=== PATIENT | male | born 1955 | race Caucasian/White ===

== ENCOUNTER 2019-11-10 04:56 | Inpatient (IN) ==
--- NOTE | 2019-10-25 14:50 | History & Physical Report ---
Date of Service October 25, 2019 Assessment & Plan (1) Osteoarthritis of right knee: DIAGNOSIS: Right knee osteoarthritis. PROCEDURE: Right total knee arthroplasty. PLAN: The patient is scheduled to undergo this procedure with Dr. Julius Sparrow at [facility] as an inpatient on November 10, 2019. Risks and complications of the procedure such as infection, bleeding, pain, scarring, nerve and blood vessel damage, weakness, wound problems, stiffness, incomplete relief of his symptoms, hardware failure, hardware loosening, or a fracture, tendon or ligament injury, blood clots, embolism, heart attack, stroke, and were explained to the patient by Dr. Sparrow during his visit today. Informed consent to perform the procedure was obtained. Sent a new copy for PCP parents to the patient's primary care provider Min Reina PA-C. We will need to obtain updated CBC with diff, complete metabolic panel, PT/INR, blood type and screen, urinalysis, urine culture, hemoglobin A1c, and a nasal culture for MRSA. The patient has up-to-date EKG and chest x-ray imaging from his last preoperative visit. The patient will be scheduled for his 2-week postoperative followup visit with myself on December 24 at 1:30 in the afternoon. He states he will most likely do an in-home therapy after discharge from the hospital for 1 week then transition to outpatient physical therapy. I advised him that he will need to hold aspirin for 7 days prior to the procedure and his metformin for 2 days prior to the procedure and to refrain from taking nonsteroidal agents for a week prior to the surgery date. He can take his blood pressure medications with a sip of water on the morning of surgery as well as his thyroid medication. I advised him that I will provide him with prescriptions for postop pain medication as well as anti-inflammatory medication upon discharge from the hospital. I advised him that he will be on a baby aspirin twice daily for 30 days postoperatively for blood clots and discussed supplementation with extra-strength Tylenol every 6 to 8 hours 2 tablets after surgery as well. We went over the total knee arthroplasty packet. We discussed discharge planning. I provided him with paperwork about using antibiotics before dental procedures or cleanings. We talked about lectures offered by [facility] with regard to joint replacement therapy. I also provided him with the paperwork to obtain a handicap placard for his vehicle for 6 months postoperatively his last preoperative visit and he has sent it to [place] for approval. I also checked with PDMP today to be sure that we could prescribe opioid analgesics and no red flags were raised that would prevent us from prescribing these medications. I also provided the patient with order for a walker and advised him that we will provide the knee immobilizer to use 48 hours postoperatively. The patient verbalized understanding of all information provided during today's visit, thanked us for the care he has received, and states if he has questions or concerns that should arise prior to his procedure date, he will contact the clinic accordingly. History of Present Illness Chief Complaint: Right knee Pain Primary Care Provider: Min Bernal PA-C HISTORY OF PRESENT ILLNESS: This 63-year-old male presented to clinic today for his preoperative history and physical. Patient was initially scheduled for a right total knee arthroplasty on September 07 however his surgery was canceled due to the COVID-19 pandemic. The patient complains of knee pain since injuring his knee at work on April 28, 2019. The patient states that he was stepping down from approximately 1 to 2 feet, had a twisting sensation of his knee when he hit the ground and has had medial-sided knee pain since. The patient saw a physician the day after the injury, had a cortisone injection without any relief. He has tried rest, has used crutches as an ambulatory aid without relief. He has tried some therapy as well, as well as some pain relieving agents that only temporarily alleviates pain. We discussed nonsurgical treatment with the patient; however, he feels this is preventing him from working and is starting to affect his activities of daily living. He elected to proceed with surgical intervention due to his significant osteoarthritis. Knee arthroscopy is not a good option for this patient, so we will proceed with total knee arthroplasty. PAST MEDICAL HISTORY: Type 2 diabetes, gastroesophageal reflux, hypothyroidism, hypercholesterolemia, and hypertension. Also, psoriasis, obesity, history of renal calculi, and the presence of dentures in his mouth. PAST SURGICAL HISTORY: Cholecystectomy, dental extraction, colonoscopy, esop hagogastroduodenoscopy, tonsillectomy/adenoidectomy. FAMILY HISTORY: Unremarkable. ALLERGIES: The patient has no known drug allergies. CURRENT MEDICATIONS: Amlodipine 5 mg tablet daily, aspirin 81 mg tablet daily, atorvastatin 10 mg oral tablet daily, levothyroxine 137 mcg tablet daily, metformin 500 mg tablet daily, pantoprazole 40 mg tablet daily, and Tylenol 1000 mg by mouth 2 to 3 times daily as needed for pain. SOCIAL HISTORY: Patient states that he quit smoking 18 years ago. He consumes approximately 8 alcoholic beverages per week. Denies any illicit drug use. DIAGNOSTIC STUDIES: DIAGNOSIS: Right knee osteoarthritis. PROCEDURE: Right total knee arthroplasty. PLAN: The patient is scheduled to undergo this procedure with Dr. Julius Sparrow at [facility] as an inpatient on November 10, 2019. Risks and complications of the procedure such as infection, bleeding, pain, scarring, nerve and blood vessel damage, weakness, wound problems, stiffness, in complete relief of his symptoms, hardware failure, hardware loosening, or a fracture, tendon or ligament injury, blood clots, embolism, heart attack, stroke, and were explained to the patient by Dr. Sparrow during his visit today. Informed consent to perform the procedure was obtained. Sent a new copy for PCP parents to the patient's primary care provider Min Reina PA-C. We will need to obtain updated CBC with diff, complete metabolic panel, PT/INR, blood type and screen, urinalysis, urine culture, hemoglobin A1c, and a nasal culture for MRSA. The patient has up-to-date EKG and chest x-ray imaging from his last preoperative visit. The patient will be scheduled for his 2-week postoperative followup visit with myself on December 24 at 1:30 in the afternoon. He states he will most likely do an in-home therapy after discharge from the hospital for 1 week then transition to outpatient physical therapy. I advised him that he will need to hold aspirin for 7 days prior to the procedure and his metformin for 2 days prior to the procedure and to refrain from taking nonsteroidal agents for a week prior to the surgery date. He can take his blood pressure medications with a sip of water on the morning of surgery as well as his thyroid medication. I advised him that I will provide him with prescriptions for postop pain medication as well as anti-inflammatory medication upon discharge from the hospital. I advised him that he will be on a baby aspirin twice daily for 30 days postoperatively for blood clots and discussed supplementation with extra-strength Tylenol every 6 to 8 hours 2 tablets after surgery as well. We went over the total knee arthroplasty packet. We discussed discharge planning. I provided him with paperwork about using antibiotics before dental procedures or cleanings. We talked about lectures offered by [facility] with regard to joint replacement therapy. I also provided him with the paperwork to obtain a handicap placard for his vehicle for 6 months postoperatively his last preoperative visit and he has sent it to [place] for approval. I also checked with PDMP today to be sure that we could prescribe opioid analgesics and no red flags were raised that would prevent us from prescribing these medications. I also provided the patient with order for a walker and advised him that we will provide the knee immobilizer to use 48 hours postoperatively. The patient verbalized understanding of all information provided during today's visit, thanked us for the care he has received, and states if he has questions or concerns that should arise prior to his procedure date, he will contact the clinic accordingly. Allergies Allergy/AdvReac Type Severity Reaction Status Date / Time celecoxib [From Celebrex] AdvReac Unknown UPPER GIB Verified 08/12/19 14:33 BANDAIDS AdvReac Unknown SKIN Uncoded 08/12/19 14:33 TEARING (SEE COMMENTS) Home Medications Home Medications Medication Instructions Recorded Confirmed Type amlodipine 5 mg PO QAM 08/05/19 08/05/19 History aspirin [Aspir-81] 81 mg PO DAILY 08/05/19 08/05/19 History levothyroxine 137 mcg PO QAM 08/05/19 08/05/19 History metformin 500 mg PO QAM 08/05/19 08/05/19 History pantoprazole 40 mg PO QAM 08/05/19 08/05/19 History Past Med/Surg History Social History Preferred Language: Nepali Communication Ability: Effective Printer'S Devil Required: No Beliefs That Will Affect Care: None Current Living Situation: Spouse Feels Safe at Home: Yes Smoking Status: Former smoker Hx Substance Use: No Review of Systems All systems reviewed & are unremarkable except as noted in HPI & below Physical Exam Physical Exam: PHYSICAL EXAMINATION: Skin: The patient's skin is normal in appearance except for a significant amount of psoriasis affecting the flexor surfaces of his knees, elbows, his lower back, and chest area. The patient has been using topical cream on the area over his anterior right knee, and it appears clear than the other patches. He is doing this so that he can proceed with surgical intervention. Eyes: Pupils are equal and reactive to light and accommodating. Extraocular movements are intact. Throat: Posterior oropharynx clear with absence of edema, erythema, exudate. Cardiovascular Exam: The patient has a regular rate and rhythm with no murmurs or gallops appreciated. Lungs: Auscultation of lung ivory reveals clear breath sounds throughout with no wheezing, rales, or rhonchi. Abdomen: Obese, nondistended, nontender with normoactive bowel sounds. Extremities: Right Knee: The patient has tenderness to palpation over the medial joint space as well as over the medial femoral condyle, and medial tibial plateau. Range of motion is limited from 0 degrees of extension to 85 degrees of flexion. Natacha's test is positive with referable pain to the medial lateral aspect of the knee. The patient also has lateral joint line tenderness when knee is palpated in the flexed position, but is lesser than that of the medial aspect. Otherwise, the patient has no varus or valgus laxity. Negative AP drawer sign. Negative Per test. Neurological Exam: Cranial nerves II through XII are intact. No motor or sensory deficits. Psychological/General Exam: The patient is alert and oriented x3 with proper grooming and hygiene. Results & Data Diagnostic Findings MRI Results: MRI of the patient's right knee done on June 14, 2019, shows tears of both the medial and lateral meniscus along with a large area of chondral loss of the medial femoral condyle, and medial tibial plateau with underlying bone marrow edema on both sides of the joint. X-rays show pathologic varus alignment with weightbearing. There is significant medial joint space narrowing and chondral calcinosis in the medial and lateral menisci.
--- NOTE | 2019-11-08 11:46 | Communication Note ---
Date of Service: November 08, 2019 COVID Assessment: Pt travel/history reviewed. Low risk at this time. Will reassess day of surgery. Routine preop covid screening from 11/07/2019 still pendi ng. Will need to confirm results by DOS.
--- NOTE | 2019-11-08 13:36 | Anesthesiology Consultation ---
Date of Service November 08, 2019 Assessment & Plan (1) Encounter for pre-operative examination: Chart Review Chart Review: Acceptable Risk for Surgery and Patient NOT seen in Pre Admission Testing Consults Requested none History Surgery Operation Date: 11/10/19 07:15 Proposed Procedures p Right Total Knee Arthroplasty - Julius Sparrow MD Height/Weight Height: 5 ft 6 in Weight: 111.13 kg Allergies Allergy/AdvReac Type Severity Reaction Status Date / Time celecoxib [From Celebrex] AdvReac Unknown UPPER GI Verified 11/03/19 09:15 BLEED BANDAIDS AdvReac Unknown SKIN Uncoded 11/03/19 09:15 TEARING (SEE COMMENTS) Medications Home Medications Medication Instructions Recorded Confirmed Last Taken amlodipine 5 mg PO QAM 08/05/19 11/03/19 Unknown aspirin [Aspir-81] 81 mg PO DAILY 08/05/19 11/03/19 Unknown metformin 500 mg PO QAM 08/05/19 11/03/19 Unknown pantoprazole 40 mg PO QAM 08/05/19 11/03/19 Unknown atorvastatin 10 mg PO HS 11/03/19 11/03/19 Unknown levothyroxine 137 mcg PO QAM 11/03/19 11/03/19 Unknown Past Medical History Medical History Acid reflux controlled Colon polyp Diabetes NIDDM History of kidney stones x1 History of upper gastrointestinal bleeding NSAID related- years ago/on PPI Hypertension Hypothyroidism Obesity Osteoarthritis Psoriasis Past Family History Family History Father Family hx of colon cancer Grandmother Family hx of colon cancer Other No family history of adverse response to anesthesia Past Surgical History Surgical History History of cholecystectomy History of colonoscopy History of endoscopy History of tonsillectomy Social History Smoking Status: Former smoker tobacco type: cigarettes Do You Dip or Chew Tobacco: No Smoking End Date: 2000 Hx Alcohol Use: Yes Alcohol type: wine and hard liquor alcohol intake frequency: a few times a week Hx Substance Use: No substance use type: does not use Testing Laboratory Results 10/27/2019: PT 12.9, INR 1 Na 137, K 3.9. Cl 105, bicarg 26, BUN 16, creat 0.89, glu 101 Hgb 14.4, hct 45.4, plt 267 Electrocardiogram Date: 08/12/19 Findings: + NSR @ (63) Normal sinus rhythm Normal ECG No previous ECGs available Confirmed by Arvind Del Toro ([id number]) on 08/12/2019 4:05:35 PM Chest X-Ray Date: 08/09/19 XR chest Pre-admission PA/Lat HISTORY: 63 years-old Male PAT preoperative exam. No acute chest complaints COMPARISON: None TECHNIQUE: PA and lateral views of the chest FINDINGS: Cardiomediastinal and hilar silhouettes are within normal limits. There is no pneumothorax, pleural effusion, focal airspace consolidation or overt pulmonary edema. Hyperinflation with diaphragmatic flattening. Cholecystectomy clips are noted within the upper abdomen. Bones appear grossly intact. IMPRESSION: Hyperinflation without acute process.
[~2019-11-10 04:56] MED LIST: CELEBREX - ALLERGY NOTED TO ORDERED MEDICATION SCH; [UNRECOGNIZED DRUG - OTHER] SCH
[2019-11-10] MEDS ORDERED: TRANEXAMIC ACID 1,000 MG **IV Pre-op IV SCH (06:00)
[2019-11-10] MEDS ORDERED: TRAMADOL HCL 50 MG TABLET PO SCH (06:00)
[2019-11-10] MEDS ORDERED: FAMOTIDINE 20 MG TAB PO SCH (06:00)
[2019-11-10] MEDS ORDERED: METOCLOPRAMIDE HCL 10 MG TABLET PO SCH (06:00)
[2019-11-10] MEDS ORDERED: ACETAMINOPHEN 500 MG TAB PO SCH (06:00)
[2019-11-10] MEDS ORDERED: ROPIVACAINE 0.5% HCL/PF 150 MG, BUPIVACAINE 0.5% MPF 30 ML, EPINEPHrine 0.15 MG, Ketoro... INFIL SCH (06:00)
[2019-11-10] MEDS ORDERED: LR 500ML BOLUS, THEN 15ML/HR IV SCH (06:00)
[2019-11-10] MEDS ORDERED: CeleBREX 200 MG CAP PO SCH (06:00)
[2019-11-10] MEDS ORDERED: LR 60ML/HR IV SCH (06:00)
[2019-11-10] MEDS ORDERED: SCOPOLAMINE 1.5 MG TDSY TD SCH (06:00)
[2019-11-10] MEDS ORDERED: TRANEXAMIC ACID 1,000 MG **IV Intra-op IV SCH (06:00)
[2019-11-10] MEDS ORDERED: CEFAZOLIN 3000MG 72.5 ML IV SCH (06:00)
[2019-11-10] MEDS ORDERED: BUPIVACAINE 0.5 % 5 MG/1 ML PF 10ML VIAL ONE (06:26)
[2019-11-10] MEDS ORDERED: ROPIVACAINE 0.5% 5 MG/ML 30 ML VIAL ONE (06:26)
[2019-11-10] MEDS ORDERED: PROPOFOL IV EMULSION 10 MG/ML 20 ML VIAL IV ONE ×2 (06:50→09:00)
[2019-11-10] MEDS ORDERED: MIDAZOLAM HCL 1 MG/ML 2ML VIAL ONE ×3 (06:50→08:21)
[2019-11-10] MEDS ORDERED: LIDOCAINE HCL 2% 2 ML VIAL/AMP(20MG/ML) INFIL ONE (06:50)
[2019-11-10] MEDS ORDERED: fentaNYL citrate 100 MCG/2 ML VIAL ONE (06:50)
--- NOTE | 2019-11-10 06:55 | History & Physical Bridge Note ---
Date of Service November 10, 2019 History & Physical Bridge Note I have examined the patient, reviewed the History & Physical and in the interval since the performance of the History & Physical I have noted the following changes of clinical significance: no changes noted
[2019-11-10] MEDS ORDERED: ORTHO JOINT ANESTHETIC ONE (07:01)
[2019-11-10] MEDS ORDERED: PROMETHAZINE HCL 12.5 MG in SODIUM CHLORIDE 0.9% 50 ML IV PRN (08:01)
[2019-11-10] MEDS ORDERED: HYDROmorphone INJ 2 MG/ML SYR/VIAL IV PRN (08:01)
[2019-11-10] MEDS ORDERED: fentaNYL citrate 100 MCG/2 ML VIAL IV PRN (08:01)
[2019-11-10] MEDS ORDERED: METOCLOPRAMIDE HCL INJ 5 MG/ML 2 ML VIAL IV PRN ×2 (08:01→09:22)
[2019-11-10] MEDS ORDERED: ATROPINE SULFATE 0.1 MG/ML 10ML SYR IV PRN (08:01)
[2019-11-10] MEDS ORDERED: ePHEDrine sulfate 50 MG/ML AMP IV PRN (08:01)
[2019-11-10] MEDS ORDERED: ONDANSETRON INJ 2 MG/ML 2 ML VIAL IV PRN ×2 (08:01→09:22)
[2019-11-10] MEDS ORDERED: ePHEDrine sulfate 50 MG/ML SYR ONE (08:23)
[2019-11-10] MEDS ORDERED: DiphenhydrAMINE HCL 50 MG/ML VIAL IV PRN (09:22)
[2019-11-10] MEDS ORDERED: NALOXONE HCL 0.4 MG/1 ML VIAL/CARP IV PRN (09:22)
[2019-11-10] MEDS ORDERED: MAGNESIUM HYDROXIDE SUSP 30 ML UDC PO PRN (09:22)
[2019-11-10] MEDS ORDERED: bisacodyL 10 MG SUPP PR PRN (09:22)
[2019-11-10] MEDS ORDERED: TAMSULOSIN HCL 0.4 MG CAP PO PRN (09:22)
[2019-11-10] MEDS ORDERED: ALUMINUM/MAGNESIUM SUSP 30 ML UDC PO PRN (09:22)
--- NOTE | 2019-11-10 09:22 | Operative Report ---
Post Operative Report Pre & Post Diagnosis Operation Date: 11/10/19 07:15 Pre-Op Diagnosis: Right Knee Osteoarthritis Post-Op Diagnosis: Right Knee Osteoarthritis I identified the patient and participated in the time-out.: Yes Procedure Operation Date: 11/10/19 07:15 Actual Procedures p Right Total Knee Arthroplasty(Right) - Julius Sparrow MD Surgeon Julius Sparrow MD Resort Housekeeper Conor Rosado PALizbeth Estimated Blood Loss 100 Findings Consistent with Post-Op Diagnosis Specimens none Complications none Disposition Accompanied Patient To Recovery: Yes Disposition: Recovery Room Description of Procedure I was present during the entire case assisting with retraction, wound closure and dressing application. Please see Dr. Sparrow procedure note for specifics of the case. I attest to the content of the Intraoperative Record and any orders documented therein. Any exceptions are noted below.
--- NOTE | 2019-11-10 09:25 | Operative Report ---
Post Operative Report Pre & Post Diagnosis Operation Date: 11/10/19 07:15 Pre-Op Diagnosis: Right Knee Osteoarthritis Post-Op Diagnosis: Right Knee Osteoarthritis I identified the patient and participated in the time-out.: Yes Procedure Operation Date: 11/10/19 07:15 Actual Procedures p Right Total Knee Arthroplasty(Right) - Julius Sparrow MD Surgeon Juilus Sparrow MD Medical Review Coordinator SYMONE Rosado PA-C Estimated Blood Loss 100 Findings Consistent with Post-Op Diagnosis Specimens Bone and soft tissue content Anesthesia Type Spinal MAC Complications none Disposition Accompanied Patient To Recovery: No Disposition: Recovery Room Indications 63-year-old gentleman who injured his knee at work on April 28, 2019. A corticosteroid injection was attempted prior to him seeing me which was unsuccessful. I saw him in June 2019. X-rays at that time demonstrated medial joint space narrowing and pathologic varus alignment. MRI that was done in June showed large areas of chondral loss from the medial aspect of the knee with underlying bone marrow edema on both sides of the joint. Tears of the medial lateral meniscus were noted as well. I had a long discussion with the patient about his diagnosis. I recommended a total knee arthroplasty. After reviewing the risks and benefits of surgery, alternatives, and expected outcomes, patient elected to proceed with surgery. All questions were answered. Informed consent was signed. We did have to delay his surgery due to the coronavirus pandemic. Description of Procedure Patient was identified in the preoperative holding area where the surgical site was marked. Patient was brought back to the operating room, placed on the operating room table, and IV sedation was administered. All bony prominences were padded. Perioperative antibiotics and tranexamic acid were administered. Exam under anesthesia was performed. This demonstrated range of motion from 3 degrees up to 125 degrees. The surgical site was prepped and draped in the normal sterile fashion. Prior to incision a multidisciplinary timeout was called. All in the room were in agreement. We began by exsanguinating the limb with an Esmarch bandage. Tourniquet was inflated to 250 mmHg. A 14 cm long incision was made over the anterior aspect of the knee. I dissected through the subcutaneous tissues to the level of the fascia. Full-thickness flaps are raised above the fascia. A median parapatellar arthrotomy was made. Half the fat pad was excised. A medial release was performed with Bovie electrocautery on the proximal tibia. Synovitis in the suprapatellar pouch was removed. The patella was then everted and held with 2 towel clips. The thickness of the patella was measured at 24 mm. Patellar resection was performed. Caliper showed the patella thickness now to be 14 mm. A size 41 mm trial was placed and had a great fit. The 3 drill holes were placed then the trial button was placed. The patellar thickness was now 25 mm which I was very happy with. The patellar trial was then removed, the patella was everted and the knee was flexed up. Osteophytes were removed from the femoral condyles and intercondylar notch. The ACL and PCL were excised. Intramedullary drill guide was drilled into the femur. Distal femoral cutting guide was placed set at 5 degrees of valgus to resect 11 mm off the distal femur. Distal femoral resection was made without difficulty. The tibia was then exposed. The lateral meniscus was sharply excised. The tibial cutting jig was set 2 clicks medial at the ankle to resect 10 mm off the less involved compartment. The jig was then pinned in position and the tibial cut was made. We then brought the knee into full extension. Lamina spreaders were placed. The medial meniscus was excised. The extension block was then placed for 10 mm thickness poly. This gave us full extension and excellent stability to varus and valgus. Next the knee was flexed up and the femoral sizing guide was placed. The patient sized to a size 4 femur. The 3 degree external rotation jig was used to create 2 holes in the distal femur. The jig was removed and the holes were compared to Whitesides axis and the epicondylar axis. We were happy with the rotation, and therefore placed a size three 4-in-1 cutting jig and pinned this into position. Our 4 cuts were made. The cutting jig was removed. The flexion block was then placed with the knee held at 90 degrees. There was excellent stability to varus and valgus at 90 degrees with no gapping medially or laterally. Next the box cutting jig was placed on the distal femur. The box cut was made and the femoral trial was impacted into position. We placed the 4 narrow femoral trial and this gave us better coverage of the trochlea without overhang. The tibia was sized to a 3 for a rotating platform component. The tibial tray was positioned in external rotation on the cut tibial surface and the knee was brought through a full range of motion. We then pinned the tibial tray into position and used the intramedullary drill followed by the keel punch. The trial polyethylene was then placed and the knee was brought through a full range of motion. I was very happy with the stability through a full range of motion. Next the trial components were removed. I then injected the posterior capsule and periosteum with the periarticular injection cocktail. The bone cuts were then irrigated and dried while the cement was mixed on the back table. The femoral component was cemented on first. Excess cement was removed. A lap sponge was placed over the femoral component for protection, then the tibia was subluxated anteriorly. The tibial component was then cemented in place. Again excess cement was removed. The trial polyethylene was then placed and the knee was brought into full extension and held there until the cement cured. The patella was cemented and clamped. Dilute Betadine solution was then allowed to irrigate the knee while the cement cured. Once the cement was fully cured, the tourniquet was let down and meticulous hemostasis was ensured. The wound was irrigated out with copious amounts normal saline. The knee was brought through a full range of motion and we are very happy with the patella tracking and the stability. Therefore, the trial tibial polyethylene was removed and the real size 3 polyethylene 10 mm thickness was placed. We then began to close. Interrupted 0 Vicryl suture was used to repair the patellar retinaculum in [id number] fashion. The quadriceps and patellar tendons were run with #1 Ethibond. The deep dermal layer was closed with running 2-0 Vicryl. Dilma were used for the skin. A compressive dressing was placed. Patient's sedation was lifted and was transferred to recovery room in stable condition. Postoperative course: Patient will be admitted to the floor for pain control and monitoring. Weightbearing as tolerated with no knee range of motion for 48 hours. Aspirin for DVT prophylaxis. I attest to the content of the Intraoperative Record and any orders documented therein. Any exceptions are noted below.
--- NOTE | 2019-11-10 09:46 | XRay Report ---
XR knee RT 1 or 2V routine CLINICAL HISTORY: Surgical Post Op knee arthroplasty COMPARISON: 08/12/2019 DISCUSSION: Anatomic alignment posttotal right knee arthroplasty. Could contact between prosthetic an d underlying bone. Expected soft tissue postoperative change. IMPRESSION: Anatomic alignment post total right knee arthroplasty. ACT 112: Negative or not required by law. The above report was generated using voice recognition software. It may contain grammatical, syntax or spelling errors. Electronically signed by: Robert Mayorga M.D. 11/10/2019 9:44 AM
[2019-11-10] MEDS: SODIUM CHLORIDE 0.9% 1000ML 1,000 ML IV SCH ×2 (10:24→20:19)
[2019-11-10] MEDS: KETOROLAC TROMETHAMINE 15 MG/ML VIAL IV SCH ×3 (10:53→20:39)
--- NOTE | 2019-11-10 10:58 | Anesthesiology Progress Note ---
Date of Service November 10, 2019 Anesthesia Post Procedure Vital Signs Vital Signs: Temp Pulse Pulse Resp BP Pulse Ox 11/10/19 10:35 36.3 C L 55 L 17 123/80 94 11/10/19 10:00 36.8 C 53 L 20 122/82 95 11/10/19 09:50 53 L 14 115/83 95 11/10/19 09:40 36.4 C L 56 L 14 129/85 94 11/10/19 09:30 54 L 19 126/63 96 11/10/19 09:21 36 C L 58 L 17 122/68 99 11/10/19 06:16 58 L 20 188/100 H 96 11/10/19 05:37 36.9 C 57 L 20 190/107 H 97 Pain Intensity Right Knee: Pain Intensity: 6 Transfer of Care Handoff Completed per policy Notes Mental Status: alert / awake / arousable and participated in evaluation Patient Amnestic to Procedure: Yes Nausea / Vomiting: adequately controlled Pain: adequately controlled Airway Patency, RR, SpO2: stable & adequate BP & HR: stable & adequate Hydration State: stable & adequate Neuraxial Anesthesia: was administered and sensory block is resolving Anesthetic Complications: no major complications apparent
[2019-11-10] MEDS: ACETAMINOPHEN 500 MG TAB PO SCH ×2 (12:58→21:39)
[2019-11-10] MEDS ORDERED: TRANEXAMIC ACID / 0.7% NACL 1,000 MG/100 ML BAG IV SCH (15:30)
[2019-11-10] MEDS: CEFAZOLIN 2000MG 2,000 MG/15 ML SYR IV SCH (15:53)
[2019-11-10] MEDS: OXYCODONE HCL IR 5 MG TAB (IMMEDIATE RELEASE) PO PRN (15:53)
[2019-11-10] MEDS: CHECK SCOPOLAMINE PATCH PLACEMENT SCH (15:57)
[2019-11-10] MEDS: ASPIRIN 81 MG ECTAB PO SCH (20:13)
[2019-11-10] MEDS: DOCUSATE SODIUM 100 MG CAP PO SCH (20:19)
[2019-11-10] MEDS ORDERED: ASPIRIN 81 MG ECTAB PO SCH (21:00)
[2019-11-10] MEDS ORDERED: SENNA 8.6 MG TAB PO SCH (21:00)
[2019-11-10] MEDS ORDERED: ATORVASTATIN 10 MG TAB PO SCH (21:00)
[2019-11-11] MEDS: CEFAZOLIN 2000MG 2,000 MG/15 ML SYR IV SCH (00:42)
[2019-11-11] MEDS: CHECK SCOPOLAMINE PATCH PLACEMENT SCH ×2 (00:42→08:39)
[2019-11-11] MEDS: OXYCODONE HCL IR 5 MG TAB (IMMEDIATE RELEASE) PO PRN ×3 (00:46→12:48)
[2019-11-11] MEDS: KETOROLAC TROMETHAMINE 15 MG/ML VIAL IV SCH (03:23)
[2019-11-11] MEDS: ACETAMINOPHEN 500 MG TAB PO SCH (05:09)
[2019-11-11 06:17] LABS: Hematocrit (blood only) 37.4 % (42-52); Hemoglobin 12.4 g/dL (14.0-18.0); Mean Corpuscular Hgb Conc 33.2 g/dL (32-36); Mean Corpuscular Volume 87.6 fL (80-100); Mean Platelet Volume 9.8 fL (7.4-10.4); Platelet Count 276 K/uL (130-400); RDW Coefficient of Variation 13.7 % (11.5-14.5); RDW Standard Deviation 43.6 fL (36.4-46.3); Red Blood Count 4.27 M/uL (4.7-6.1); White Blood Count 11.13 K/uL (4.8-10.8)
[2019-11-11] MEDS ORDERED: LEVOTHYROXINE SODIUM 137 MCG TABLET PO SCH (06:30)
[2019-11-11 06:43] LABS: BUN Creatinine Ratio 13.9 (10-20); Calcium 8.4 mg/dl (8.5-10.1); Creatinine Clr Calc Pharmacy 99.8 ml/min; Est GFR (Non-African American) 90.6; Potassium 4.1 mmol/L (3.5-5.1)
[2019-11-11] MEDS ORDERED: dexAMETHasone 4 MG TAB PO SCH (08:00)
[2019-11-11] MEDS: ASPIRIN 81 MG ECTAB PO SCH (08:45)
[2019-11-11] MEDS: DOCUSATE SODIUM 100 MG CAP PO SCH (08:46)
[2019-11-11] MEDS ORDERED: AMLODIPINE BESYLATE 5 MG TAB PO SCH (09:00)
[2019-11-11] MEDS ORDERED: METFORMIN HCL 500 MG TAB PO SCH (09:00)
[2019-11-11] MEDS ORDERED: MULTIVITAMIN TAB PO SCH (09:00)
[2019-11-11] MEDS ORDERED: PANTOprazole 40 MG TAB PO SCH (09:00)
--- NOTE | 2019-11-11 10:31 | Orthopedic Progress Note ---
Date of Service November 11, 2019 Assessment & Plan (1) S/P total knee arthroplasty: PT/OT WBAT with immobilizer for first 48 hrs and walker assistance Dressing removed and Silverlon applied (keep in place) Ice with EZ wrap Aspirin and TEDs for DVT prophy Pain control with PO meds Discharge home today with home health services Follow up at [facility] as scheduled With questions call: Admission and Anticipated Discharge Date Admission Date: November 10, 2019 Subjective This 63 yo M is day 1 s/p right total knee arthroplasty. States that he is d oing very well and that PT had him walk two laps this AM. His pain was well controlled with PO Oxycodone. He states that his ready to go home after lunch today. Patient denies CP, SOB, nausea, vomiting, fever, chills, sweats or lethargy. Review of Systems Review of Systems: All systems reviewed & are unremarkable except as noted in Subjective Physical Exam Physical Exam: Right knee: Active ROM 0-60. Dressing removed and Silverlon applied. No active seepage/drainage. Mild effusion. Mild edema and ecchymosis. Able to perform active SLRT but quad is not firing fully. Calf soft and supple. [place] intact. [place] intact. Able to easily actively move digits and dorsi/plantar flex foot. Periph pulses palpable. Cap refill < 2 seconds. Results & Data ([facility]) Vital Signs (Past 12 Hours) Vital Signs Temp Pulse Resp BP Pulse Ox 11/11/19 07:42 36.7 C 53 L 18 156/89 H 94 11/11/19 03:56 36.6 C 69 18 125/73 94 11/10/19 23:05 36.9 C 54 L 18 137/86 95 Laboratory Results 11/11/19 11/11/19 Range/Units 05:49 05:49 WBC 11.13 H (4.8-10.8) K/uL RBC 4.27 L (4.7-6.1) M/uL Hgb 12.4 L (14.0-18.0) g/dL Hct 37.4 L (42-52) % MCV 87.6 (80-100) fL MCH 29.0 (25-34) pg MCHC 33.2 (32-36) g/dL RDW Std Deviation 43.6 (36.4-46.3) fL RDW Coeff of Khai 13.7 (11.5-14.5) % Plt Count 276 (130-400) K/uL MPV 9.8 (7.4-10.4) fL Sodium 138 (136-145) mmol/L Potassium 4.1 (3.5-5.1) mmol/L Chloride 106 (98-107) mmol/L Carbon Dioxide 25 (21-32) mmol/L Anion Gap 7.0 (3-11) BUN 12 (7-18) mg/dl Creatinine 0.90 (0.6-1.4) mg/dl Est Cr Clr Drug Dosing 99.8 ml/min Est GFR ( Amer) 105.0 Est GFR (Non-Af Amer) 90.6 BUN/Creatinine Ratio 13.9 (10-20) Glucose 144 H (70-99) mg/dl Calcium 8.4 L (8.5-10.1) mg/dl
--- NOTE | 2019-11-11 10:44 | Discharge Summary ---
Date of Service November 11, 2019 Admission HPI Per Admitting Provider HISTORY OF PRESENT ILLNESS: This 63-year-old male presented to clinic today for his preoperative history and physical. Patient was initially scheduled for a right total knee arthroplasty on September 07 however his surgery was canceled due to the COVID-19 pandemic. The patient complains of knee pain since injuring his knee at work on April 28, 2019. The patient states that he was stepping down from approximately 1 to 2 feet, had a twisting sensation of his knee when he hit the ground and has had medial-sided knee pain since. The patient saw a physician the day after the injury, had a cortisone injection without any relief. He has tried rest, has used crutches as an ambulatory aid without relief. He has tried some therapy as well, as well as some pain relieving agents that only temporarily alleviates pain. We discussed nonsurgical treatment with the patient; however, he feels this is preventing him from working and is starting to affect his activities of daily living. He elected to proceed with surgical intervention due to his significant osteoarthritis. Knee arthroscopy is not a good option for this patient, so we will proceed with total knee arthroplasty. PAST MEDICAL HISTORY: Type 2 diabetes, gastroesophageal reflux, hypothyroidism, hypercholesterolemia, and hypertension. Also, psoriasis, obesity, history of renal calculi, and the presence of dentures in his mouth. PAST SURGICAL HISTORY: Cholecystectomy, dental extraction, colonoscopy, esophagogastroduodenoscopy, tonsillectomy/adenoidectomy. FAMILY HISTORY: Unremarkable. ALLERGIES: The patient has no known drug allergies. CURRENT MEDICATIONS: Amlodipine 5 mg tablet daily, aspirin 81 mg tablet daily, atorvastatin 10 mg oral tablet daily, levothyroxine 137 mcg tablet daily, metformin 500 mg tablet daily, pantoprazole 40 mg tablet daily, and Tylenol 1000 mg by mouth 2 to 3 times daily as needed for pain. SOCIAL HISTORY: Patient states that he quit smoking 18 years ago. He consumes approximately 8 alcoholic beverages per week. Denies any illicit drug use. DIAGNOSTIC STUDIES: Admission Exam Per Admitting Provider PHYSICAL EXAMINATION: Skin: The patient's skin is normal in appearance except for a significant amount of psoriasis affecting the flexor surfaces of his knees, elbows, his lower back, and chest area. The patient has been using topical cream on the area over his anterior right knee, and it appears clear than the other patches. He is doing this so that he can proceed with surgical intervention. Eyes: Pupils are equal and reactive to light and accommodating. Extraocular movements are intact. Throat: Posterior oropharynx clear with absence of edema, erythema, exudate. Cardiovascular Exam: The patient has a regular rate and rhythm with no murmurs or gallops appreciated. Lungs: Auscultation of lung ivory reveals clear breath sounds throughout with no wheezing, rales, or rhonchi. Abdomen: Obese, nondistended, nontender with normoactive bowel sounds. Extremities: Right Knee: The patient has tenderness to palpation over the medial joint space as well as over the medial femoral condyle, and medial tibial plateau. Range of motion is limited from 0 degrees of extension to 85 degrees of flexion. Natacha's test is positive with referable pain to the medial lateral aspect of the knee. The patient also has lateral joint line tenderness when knee is palpated in the flexed position, but is lesser than that of the medial aspect. Otherwise, the patient has no varus or valgus laxity. Negative AP drawer sign. Negative Per test. Neurological Exam: Cranial nerves II through XII are intact. No motor or sensory deficits. Psychological/General Exam: The patient is alert and oriented x3 with proper grooming and hygiene. Principal Diagnosis Right knee osteoarthritis Discharge Exam Right knee: Active ROM 0-60. Dressing removed and Silverlon applied. No active seepage/drainage. Mild effusion. Mild edema and ecchymosis. Able to perform active SLRT but quad is not firing fully. Calf soft and supple. [place] intact. [place] intact. Able to easily actively move digits and dorsi/plantar flex foot. Periph pulses palpable. Cap refill < 2 seconds. Discharge Data Allergies Allergy/AdvReac Type Severity Reaction Status Date / Time adhesive AdvReac Intermediate Bandaids - Verified 11/10/19 08:43 Skin Tearing (see comments) celecoxib [From Celebrex] AdvReac Intermediate UPPER GI Verified 11/10/19 08:42 BLEED Consultations 11/10/19 09:22 Consult Case Management - Discharge Planning Routine Procedures Performed Operation Date: 11/10/19 07:15 Actual Procedures p Right Total Knee Arthroplasty(Right) - Julius Sparrow MD Ordered Studies 11/10/19 05:00 US - OR guided needle placemen Routine Hospital Course (1) S/P total knee arthroplasty: Patient did very well overnight without complication. He had no issues with PT/OT this AM. He is eager to be discharged home. He is planning on doing PT in-home with health services for first 1-2 weeks post op. PT/OT WBAT with immobilizer for first 48 hrs and walker assistance Dressing removed and Silverlon applied (keep in place) Ice with EZ wrap Aspirin and TEDs for DVT prophy Pain control with PO meds Discharge home today with home health services Follow up at [facility] as scheduled With questions call: Total Time Total Time Spent Total Time Spent (In Minutes): 20 mins Total Time Includes: Examination of the Patient, Discharge Planning and Medication Reconciliation Discharge Plan Discharge Items Patient Disposition: Home - Home Health Services Reason For Visit: RIGHT KNEE ARTHRITIS Discharge Diagnosis: Right Knee Osteoarthritis Activity: As commented below Lifting: None Bathing: Keep incision dry Bathing Comment: May shower tomorrow Sexual Activity: Wait until after follow-up appointment Exercise/Sports: Wait until after follow-up appointment Driving/Machine Use: No driving until cleared by advertising specialist Weightbearing: Right weightbearing Weightbearing Comment: as tolerated with immobilizer (first 48 hrs post op) and walker Non-emergency contact: Primary Care Provider Call non-emergency contact if: you have any medication questions, your pain is not controlled, your temperature is above 101.5, your wound has increased drainage and your wound pain has increased Follow-up/Referrals: Min Bernal PA-C [Primary Care Provider] - Diet: Regular Addtl Attending Provider Instructions: Post-operative Instructions Dear Patient and Family/Friends, Before you are discharged from the hospital, it is important to know what to expect when you get home after surgery. To that end, we have created this sheet of discharge instructions which covers many commonly asked questions. Make sure you go through this sheet in its entirety with your nurse before you are discharged. Please note that we will go over the specifics of your surgery and recovery when you return for your first post-operative visit. Sincerely, Dr. Sparrow Medication 1. Oxycodone 5 mg: take 1-2 tabs by mouth every 4-6 hours as needed for pain. This will be sent to your pharmacy. 2. Diclofenac Sodium 75 mg: take 1 tab twice daily for 30 days post operatively. This will be sent to your pharmacy with 1 refill. 3. Aspirin 81 mg: take 1 tab twice daily for 30 days post operatively to prevent blood clots. Please purchase this medication. 4. Extra Strength Tylenol 500mg: take 2 tabs every 6-8 hour as needed for pain for 30 days post operatively. Please purchase this medication. Pain Expect to be in a fair amount of pain after surgery. Remember, our goal is not to eliminate your pain, but to make it tolerable. It is a good idea to stay ahead of your pain by taking the medications you were prescribed once you get home. Typically, the pain starts improving 3-7 days after surgery. You should start weaning off the narcotic pain medication (oxycodone, hydrocodone, hydromorphone, morphine) as soon as your pain improves. Please call our office if your pain is not adequately controlled. Ice Ice your operative site at least 5 times a day for 15-30 minutes at a time. Make sure you have a thin cloth between the ice or cooling unit and your skin to prevent huffman bite. This is especially important if you received a nerve block. Continue icing your operative site for the first 5-7 days after surgery, then as needed. Diet/Nausea/Vomiting Start by drinking clear liquids and eating crackers. If you can tolerate this, then you may resume your normal diet. If you feel nauseated or vomit, take Zofran/ondansetron (if prescribed). Please call our office if you have intractable nausea or vomiting, or, if after hours, you may go to the Emergency Room for help. Constipation Constipation is a common side effect of narcotic pain medication. If you have not had a bowel movement within 2 days after surgery, we recommend purchasing an over the counter laxative such as Milk of Magnesia, Dulcolax, or Miralax from a local pharmacy, and taking it as instructed. Call our clinic if any questions. Slings and Braces If you were placed in a sling or brace, it must be worn at all times, including sleep. You may remove your sling or brace for physical therapy, home exercises, and showering. The length of time you will be in your brace and range of motion restrictions depends on what surgery you had; these details will be reviewed at your first post-operative appointment. Nerve block The anesthesia team sometimes places a nerve block to help with post-operative pain control. This results in significant numbness and inability to move the extremity. The nerve block usually wears off in 8-12 hours, but sometimes can last up to 24 hours. Please call our office if you are still unable to move your extremity after 24 hours, unless you received a pain pump to take home. Nerve blocks typically wear off quickly, so start taking pain medication as soon as you start feeling soreness near your surgical site. Weight bearing and Range of Motion. Do not bear any weight through your operative extremity immediately after surgery. If you had upper extremity surgery, do not lift anything with that arm. If you are in a knee brace, keep it locked in place until your follow-up. We will discuss your weight bearing, range of motion, and lifting restrictions in detail at your first post-operative appointment. Continuous Passive Motion (CPM) Machine If you were prescribed a CPM machine, it will start after your first post- operative appointment, at which time we will give you instructions on the range of motion settings and duration of treatment Physical therapy You will be given a prescription for physical therapy or occupational therapy at your first post-operative appointment. Typically, patients start therapy within 1 week of surgery Wound care and showering We will inspect your wound at your first post-operative visit, and may do a dressing change at that time. Most patients will be in a water-proof dressing that is removed 14 days after surgery. It is normal to see some dried blood on the dressing. Do not remove your dressing, paper strips or sutures yourself unless you are given permission. Showering is allowed the day after surgery. Do not scrub or remove any dressings. The wound should not be submerged underwater (i.e. in a bathtub or pool) until 4 weeks after surgery AYLIN stockings If you were given white stockings, these are to be worn at all times except to shower (on both legs) for the first 2 weeks after surgery. Driving You may not drive while taking narcotic pain medication or while in a cast, splint, sling or brace. You, the patient, need to make the final determination about when you are safe to drive, however, the earliest you may consider driving after surgery is below: Hand/Wrist/Elbow Surgery: 3 days Shoulder Surgery: 2 weeks Hip,/Knee/Ankle Surgery: 4 weeks Fracture repair: 6 weeks Return to Work Your return to work depends on what surgery was done and what type of work you do. Please bring any paperwork your employer needs completed to your first post-operative visit. Also, bring a description of your job duties, as this helps us to understand what risks you may face at work. Travel Avoid long distance travel (greater than 1 hour) in airplanes and cars for the first 6 weeks after surgery. If you must travel, you need to have a Doppler ultrasound done before you travel to rule out a blood clot in your legs. Follow-up You should have a follow-up appointment already scheduled 1-2 days after surgery. If not, please contact our office to make this appointment before you leave the hospital. When to call the office It is normal to have swelling and bruising in the limb that was operated on. This will improve with time. It is also normal to have fevers for the first 2 days after surgery. Reasons you should call your doctor include: Uncontrolled pain; Nausea, vomiting, or constipation that does not improve with medication; Fevers over 101.5, chills, sweats; Drainage or bleeding from the wound; Foul odor; Spreading areas of redness; Any other concerns Pending Studies at Discharge: No Stand-Alone Forms: My [facility] Medications and DC Order Prescriptions: New oxycodone 5 mg tablet 5 mg PO Q6H PRN (Reason: pain) Qty: 30 RF: 0 diclofenac sodium 75 mg tablet,delayed release (DR/EC) 75 mg PO BID 30 Days Qty: 60 RF: 1 Continued metformin 500 mg Tablet 500 mg PO QAM RF: 0 amlodipine 5 mg Tablet 5 mg PO QAM RF: 0 pantoprazole 40 mg Tablet,Delayed Release (Dr/Ec) 40 mg PO QAM RF: 0 levothyroxine 137 mcg Tablet 137 mcg PO QAM RF: 0 atorvastatin 10 mg Tablet 10 mg PO HS RF: 0 Changed aspirin [Aspir-81] 81 mg Tablet,Delayed Release (Dr/Ec) 81 mg PO BID Qty: 0 RF: 0 Discharge Orders: Discharge Order (Routine); Ordered 11/11/19 Ordered By: Farzad Rosado Admission Data Admit Date/Time: 11/10/19 09:22 Attending Provider: Julius Sparrow Admit Provider: Julius Sparrow Primary Care Provider: Min Bernal
== END 2019-11-11 13:00 | disposition home health service (06) | DRG 470 ==
LOC: ASU 04:56 → 3N 09:22